=== PATIENT | male | born 1960 | race Hispanic/Latino ===

== ENCOUNTER 2016-11-12 16:50 | Emergency (ER) | payer BC ==
[2016-11-12] MEDS ORDERED: Fentanyl 100 MCG/2 ML VIAL ONE ×6 (16:54→18:57)
[2016-11-12] MEDS ORDERED: Sodium Bicarbonate 2.4 MEQ/5 ML ONE (16:54)
[2016-11-12] MEDS ORDERED: Sodium Bicarb 50 MEQ/50 ML Abboject 8.4% SYRINGE ONE (16:54)
[2016-11-12] MEDS ORDERED: Norepinephrine 8 MG/0.9% NS 250 ML ONE (16:58)
[2016-11-12] MEDS ORDERED: Propofol 1,000 MG/100 ML VIAL IV ONE (17:03)
[2016-11-12 17:15] LABS: Anion Gap 11 mmol/L (-14-95); Critical Call POC Critical Value; Lactate 8.59 mmol/L (0.50-2.20); POC Est. GFR-MDRD-African-Amer 21 (2-60); POC Estimated GFR-MDRD 17 (2-60); T. Carbon Dioxide 29.7 mmol/L (1.0-85.0); pH (Venous) 7.289 (7.35-7.45); vO2 Saturation-calc 88.4 % (0.0-100.0)
[2016-11-12 17:19] LABS: Prothrombin Time 28.8 SEC (12.0-14.7)
[2016-11-12 17:20] LABS: PTT 54.2 SEC (22.9-36.1)
[2016-11-12] MEDS ORDERED: Acetaminophen 325 MG Suppository ONE (17:32)
[2016-11-12 17:41] LABS: ALT (SGPT) 66 U/L (8-55); AST (SGOT) 115 U/L (5-34); Alkaline Phosphatase 127 U/L (40-150); Anion Gap 26 mmol/L (10-20); BUN (Urea Nitrogen) 29 mg/dL (8.4-25.7); Bilirubin, Total 2.5 mg/dL (0.2-1.2); Calc. Creatinine Clearance 0 mL/min (70-130); Calcium 9.2 mg/dL (7.8-10.44); Carbon Dioxide 20 mmol/L (22-29); Chloride 96 mmol/L (98-107); Estimated GFR-MDRD 17; Globulin 3.6 g/dL (2.4-3.5); Protein, Total 7.1 g/dL (6.0-8.3)
[2016-11-12 17:45] LABS: Troponin I 0.162 ng/mL (< 0.028)
--- NOTE | 2016-11-12 18:21 | RAD ---
PORTABLE SUPINE CHEST ONE VIEW: 11/12/16 HISTORY: 56-year-old male with history of cardiac arrest while at dialysis prior to admission. Postop midline sternotomy. Right dual lumen venous access catheter. Endotracheal tube and NG tubes a ppear to be in satisfactory location. Minimal cardiomegaly. No overt confluent pneumonia or overt ed higinio or pleural effusion. IMPRESSION: Mild cardiomegaly. NG tube and endotracheal tubes in satisfactory location. No edema or other acute process. POS: JJ
[2016-11-12] MEDS ORDERED: EPINEPHrine 4 MG in Dextrose 5% in Water 250 ML IV PRN ×2 (18:25)
[2016-11-12 18:27] LABS: Hematocrit 40.8 % (42.0-52.0); Mean Platelet Volume 8.5 fL (7.4-10.4); Red Blood Cell (RBC) Count 4.53 mill/uL (4.70-6.10); White Blood Cell (WBC) Count 16.2 thou/uL (4.8-10.8)
[2016-11-12 18:34] LABS: Anisocytosis SLIGHT = 6-15 cells (100X) (0-5/hpf); Band 26 % (5-11); Dohle Bodies MODERATE; Metamyelocyte 11 % (0-0); Myelocyte 1 % (0-0); Neutrophil 57 % (42-75); Polychromasia SLIGHT = 2-3 cells (100X) (0-2/hpf); Reactive Lymphocytes 1 % (0-10); Schistocytes SLIGHT = 2-5 cells (100X) (0-1/hpf); Target Cells SLIGHT = 2-5 cells (100X) (0-1/hpf); Toxic Granulation SLIGHT; Vacuoles MODERATE
[2016-11-12] MEDS ORDERED: methylPREDNISolone Sod Succ/PF 125 MG/2 ML VIAL ONE (18:44)
[2016-11-12] MEDS ORDERED: Water For Inject, Bacteriostat 30 ML ONE (18:45)
[2016-11-12] MEDS ORDERED: Hydrocortisone Sod Succ/PF 250 mg/2 ml Vial SLOW IVP SCH (19:00)
[2016-11-12 19:29] LABS: Bilirubin Moderate (Negative); Blood, Urine Large (Negative); Glucose, Urine (Dipstick) Negative (Negative); Ketone, Urine 15 mg/dL (Negative); Nitrite Negative (Negative); Protein, Urine (Dipstick) > or equal to 300 mg/dL (Neg-Trace); Urobilinogen 0.2 mg/dL (0.2-1.0)
[2016-11-12 19:37] LABS: RBC/HPF 21-50 HPF (0-3)
[2016-11-12 19:38] LABS: Bacteria/HPF Rare-Few HPF (None Seen); Sperm/HPF Rare HPF (None Seen); Squamous Epithelial 0-3 HPF (0-3); WBC/HPF 0-3 HPF (0-3)
[2016-11-12 19:39] LABS: Hyaline Casts/LPF 0-3 HYALINE CAST LPF (0-3 Hyaline)
--- NOTE | 2016-11-12 23:07 | HP ---
DATE OF ADMISSION: 11/12/2016 PRIMARY CARE PHYSICIAN: Not listed. PRIMARY MOTOR GRADER OPERATOR: Dr. Proctor. CHIEF COMPLAINT: Cardiac arrest. HISTORY OF PRESENT ILLNESS: Mr. Park is a 56-year-old Latin-[place] male with history of end-sta ge renal disease on hemodialysis, coronary artery disease, diabetes, chronic systolic CHF, who was a t dialysis today. Family says he arrived there around on 11 and they think he was hooked up around 12. Around 2:40, they were contacted and told that he needed to go to the ER. EMS was called to pi ck the patient up. On EMS arrival, the patient arrested in pulseless electrical activity. They were performed 10 minut es of CPR and able to get back perfusing sinus tachycardia. He did get 1 amp of bicarbonate and 1 a mp of epinephrine. He was subsequently intubated in the field for acute hypoxemic respiratory failu re and transported to the ER. On arrival, he developed PEA arrest again and underwent CPR. He received 1-2 more amps of epinephri ne, was placed on Levophed drip and epinephrine drip and we were called for admission. The patient is currently intubated and slightly sedated, although he is having some muscular reactio n to discomfort. Unable to get any further history. I did talk to the family and got his dialysis history from them. PAST MEDICAL HISTORY: 1. End-stage renal disease on hemodialysis. 2. Diabetes mellitus type 2. 3. Coronary artery disease. 4. Chronic systolic congestive heart failure. 5. Anemia of chronic kidney disease. 6. Hypertension. PAST SURGICAL HISTORY: Include: 1. Coronary artery bypass grafting, unknown vessels. 2. Right chest PermCath placement. HOME MEDICATIONS: Unknown due to emergency status. ALLERGIES: NKDA. FAMILY HISTORY: Negative for history of clotting or bleeding disorder, no immune dysfunction. SOCIAL HISTORY: Negative for habits x3 per family. REVIEW OF SYSTEMS: Not obtainable due to the mental status. PHYSICAL EXAMINATION: VITAL SIGNS: Temperature on arrival was 101.3, pulse in the 120s, blood pressure 135/76 after multi ple rounds of CPR and epinephrine plus IV Levophed. Respiratory was 22 on the ventilator. He was s atting 95%-98% on 100%. GENERAL: He is acutely ill-appearing. He is minimally responsive to painful stimuli. He is orally intubated. He is on the light sedation. HEENT: Normocephalic and atraumatic. Pupils are 1 mm and minimally reactive. Extraocular muscles are not able to be tested. NECK: Supple. There is no lymphadenopathy or JVD. No thyromegaly. LUNGS: Have good breath sounds bilaterally, there is faint bibasilar mild crackles, but overall shaina gs are mostly clear. CARDIOVASCULAR: Tachycardic. The sounds are faint. I cannot appreciate any murmurs. ABDOMEN: Soft, it is nontender, slightly distended. EXTREMITIES: Show 1-2+ edema. SKIN: Otherwise, warm, moist and well perfused. His PermCath site appears clean, dry and intact to the right chest. MUSCULOSKELETAL: Unremarkable, appears normal to inspection, no inflamed joints, and no joint effus ions. LABORATORY EVALUATION: CBC is pending. Comprehensive metabolic profile was actually fairly normal looking; creatinine of 3.68 and BUN of 29. Electrolytes are normal. Liver functions are normal exc ept for AST of 115. Total bilirubin is 2.5. VBG showed a pH of 7.29, slightly low, pCO2 of 58 and pO2 of 63, both of which are elevated. A chest x-ray showed endotracheal tube in okay positioning. He had minimal signs of pulmonary edema , mostly clear. It did appear to be over penetrated. ASSESSMENT AND PLAN: 1. Septic shock: Point of care, lactic acid of 8.59, persistent hypotension despite pressors, cert ainly tachycardic, and troponin I currently 0.162 likely trending up. 2. Suspect non-ST elevation myocardial infarction due to hypotension and tachycardia. 3. PA cardiac arrest. 4. Acute hypoxemic respiratory failure. 5. History of systolic congestive heart failure. 6. End-stage renal disease on hemodialysis. The patient will be admitted to the ICU. We will cont inue him on vasopressin, Levophed, epinephrine. I have spoken with Dr. Donaldson. We will give the samuel ent a single dose of Solu-Cortef for now. I will start him on broad-spectrum antibiotics with vanco mycin and Zosyn for sepsis, unknown etiology, and we will admit in the critical care unit. We will keep him on assist-control ventilation until pulmonary has the chance to see him. I do realize he d oes have congestive heart failure, but in the setting of his severe hypotension. We will need to keller pport his blood pressure with fluids first. 7. History of end-stage renal disease on hemodialysis. We will contact Dr. Proctor in the morning. Greater than 45 minutes was spent in managing vasopressor drips, ventilator settings, and discussion with the family.
--- NOTE | 2016-11-13 04:43 | DS ---
DATE OF ADMISSION: 11/12/2016 DATE OF : 11/12/2016 around 1930. PRIMARY CAUSE OF : 1. Cardiac arrest. 2. Acute hypoxemic respiratory failure. 3. Septic shock, unknown etiology. CONSULTATIONS: None. PROCEDURES: None. HISTORY OF PRESENT ILLNESS: The patient was admitted from the ER this evening. He presented after cardiac arrest at the dialysis unit where EMS was called due to the patient having agonal breathing . After 10 minutes of CPR, the patient regained spontaneous circulation and was transferred to the ER. On arrival here, he had another cardiac arrest and subsequently was resuscitated, we were called for admission. HOSPITAL COURSE: The patient was seen and examined in the ER, 45 minutes of critical care was spent with the patient, he had multiple secondary episodes of PEA arrest prior to being stable enough to transfer to the ICU, and ultimately developed cardiac arrest and the code was called. The patient w as pronounced around 7:30 p.m.
== END 2016-11-12 19:00 | disposition expired ==
LOC: ERS 16:50
DX: I46.9 Cardiac arrest, cause unspecified (principal); E78.5 Hyperlipidemia, unspecified; I13.2 Hypertensive heart and chronic kidney disease with heart failure and with stage 5 chronic kidney disease, or end stage renal disease; E11.22 Type 2 diabetes mellitus with diabetic chronic kidney disease; N18.6 End stage renal disease; I50.9 Heart failure, unspecified
CPT/HCPCS: 36556; 51702; 71010; 80053; 81003; 81015; 82330; 82553; 82803; 83605; 83735; 83880; 84484; 85025; 85610; 85730; 87040; 87077; 87086; 87149; 87186; 92950; 93005; 94002; 96365; 96368; 96375; 96376; 99292; C1769; J0171; J1644; J2704; J2930; J3010; J3370; J7070